=== PATIENT | male | born 1990 | race Caucasian/White ===

== ENCOUNTER 2022-08-13 07:33 | Emergency (ER) | payer MEDICAID, SELFPAY ==
[2022-08-13 08:03] VITALS: BP 139/85; PULSE 73; RESP 16; TEMP 36.3; O2SAT 96; BMI 34.8
[2022-08-13] MEDS: Albuterol Sulfate 2.5 MG, Albuterol Sulfate (0.083%) 2.5 MG 5 MG INHALE (08:25)
[2022-08-13 08:28] VITALS: PULSE 86; RESP 18; O2SAT 96
[2022-08-13] MEDS: predniSONE 20 MG TABLET 60 MG PO (09:00)
--- NOTE | 2022-08-13 09:05 | ED.ASTHMA ---
HPI - Asthma General Chief Complaint: Asthma Stated Complaint: asthma diff breathing Time Seen by Provider: 08/13/22 08:21 Source: patient Mode of arrival: ambulatory Limitations: no limitations History of Present Illness HPI Narrative: 31-year-old male presents to ED for coughing, chest tightness and wheezing since yesterday. Patient denies any fever or chills. Patient states slight body aches. Patient denies any leg swelling, calf pain, coughing up blood, recent long travle, recent surgery, pleursy, estrogen hormone use or history of blood clots. Related Data Previous Rx's Medication Instructions Recorded prednisone 20 mg tablet 40 mg PO DAILY 5 days #10 tabs 08/13/22 Allergies Allergy/AdvReac Type Severity Reaction Status Date / Time SEAFOOD Allergy Intermediate HIVES Uncoded 07/21/20 19:14 Review of Systems Review of Systems: Asthma exacerbation. Cough and wheezing Yes all other systems are reviewed and are negative PMFSH Social History Social History Advance Directives: No Advance Directives Information Provided: No Physical Exam Vital Signs: Vital Signs: Last Vital Signs Temp 97.3 F 08/13/22 08:03 Pulse 86 08/13/22 08:28 Resp 18 08/13/22 08:28 BP 139/85 08/13/22 08:03 Pulse Ox 96 08/13/22 08:03 O2 Del Method 08/13/22 08:03 BMI result Body Mass Index 34.8 Const: General: cooperative, healthy appearing, comfortable, no acute distress, well developed, alert, awake and Physically active Orientation/consciousness: oriented to person, oriented to place, oriented to time and patient oriented x3 HEENT: Head: Yes normal to inspection, Yes No palpable skull fracture present, Yes normocephalic, Yes atraumatic and No abrasion Eyes: General: appearance normal, both eyes and all related structures Neck: Neck: Yes normal visual inspection, Yes full ROM, Yes no lymphadenopathy, Yes no meningeal signs, Yes trachea midline, Yes supple, No anterior neck swelling and No tender Chest: Chest palpation & inspection: normal inspection of the chest and normal palpation of entire chest wall Resp: Effort & Inspection: normal respiratory effort and able to speak in complete sentences Auscultation: wheezes (slight) Cardio: Jugular venous distension: no JVD Heart sounds: S1 normal heart sound present and S2 normal heart sound present GI: Inspection: Yes normal to inspection and No abdominal wall ecchymosis Palpation (GI): Soft to palpation, not firm, nontender, no guarding and not rigid : General: No CVA tenderness and Yes no CVA tenderness Back/Spine/Pelvis: Back: no CVA tenderness, No CVA tenderness and No back tenderness Skin: General skin exam: no rashes or lesions noted and elasticity normal Neuro: General: oriented to person, oriented to place, oriented to time, patient oriented x3, gait normal, tone normal, no meningeal signs and CN's II-XI intact bilaterally Cranial nerves: Yes CN's II-XII intact bilaterally Extrem: Other: Lower extremities negative for swelling, pitting edema, calf tenderness General: Yes normal to inspection and Yes full ROM Psych: Appearance: grossly normal, well kempt and not disheveled Course Course Course Narrative: Albuterol inhaler COVID swab and steroids ordered. Reevaluation(s) Reevaluation #1: Patient feels better after albuterol treatments steroids. Patient to be discharged. Wheezing improved Time: 10:16 MDM - Asthma MDM Narrative Medical decision making narrative: asthma Lab Data Labs: Lab Results 08/13/22 Range/Units 09:00 COVID-19 ([facility]) Negative (Negative) COVID-19 Clin Com See Note Discharge Plan Discharge Clinical Impression: Asthma with acute exacerbation Patient Disposition: Home, Self-Care Instructions: Asthma (ED) Additional Instructions: Return to the ED immediately for any shortness of breath, chest pain, coughing up blood, leg swelling, calf pain, fever, chills, weakness, dizziness, or any other concerning symptoms. Please follow-up primary care provider. Continue to use your albuterol inhaler as needed. You will be discharged with steroids. Your COVID swab came back negative. Prescriptions: New prednisone 20 mg tablet 40 mg PO DAILY 5 Days Qty: 10 0RF Stand Alone Forms: Work/School Release Interventions: ED Discharge Assessment Last Done: 08/13/22 10:28 Discharge Date/Time: 08/13/22 10:30 Print Language: Kyrgyz
[2022-08-13 09:22] LABS: COVID-19 Test Negative (Negative)
== END 2022-08-13 10:30 | disposition home or self-care (01) ==
PROVIDERS: Physician Assistant; Emergency Provider Student in an Organized Health Care Education/Training Program
DX: J45.901 Unspecified asthma with (acute) exacerbation (principal); Z20.822 Contact with and (suspected) exposure to COVID-19
CPT/HCPCS: 87635; 94640; 99284

== ENCOUNTER 2022-08-30 15:05 | Emergency (ER) | payer MEDICAID, SELFPAY ==
--- NOTE | ~2022-08-30 | CT_ITS ---
EXAMINATION: CT head/brain wo IV con CLINICAL INFORMATION: Reason for Exam hand numbness COMPARISON: None. TECHNIQUE: Contiguous axial imaging was performed from the skull base to vertex without intravenous contrast. Sagittal and coronal reformatted images were obtained. This CT examination was performed using dose optimization techniques as appropriate, variously including the following: * Automated exposure control * Adjustment of mA and/or kV according to patient size (this includes techniques or standardized protocols for targeted exams where dose is matched to indication/reason for exam; i.e. extremities or head) Use of iterative reconstruction technique DLP: 843 mGy-cm FINDINGS: No acute osseous or soft tissue abnormality. Patchy paranasal sinus mucosal thickening. There is no evidence of acute intracranial hemorrhage or territorial infarction. No abnormal mass effect or midline shift is seen. Tracy to white matter differentiation is well preserved. No extra-axial fluid collections are identified. No hydrocephalus. CT/CT head/brain wo IV con IMPRESSION: 1. No acute intracranial abnormality.
[2022-08-30 15:11] VITALS: BP 118/71; PULSE 99; RESP 18; TEMP 36.1; O2SAT 98; BMI 39.0
[2022-08-30 15:30] LABS: MANUAL DIFF FLAG NO
[2022-08-30 15:37] LABS: Basophils Absolute Auto 0.1 X10*3/uL (0.0-0.2); Basophils Percent Auto 0.5 % (0-2); Eosinophils Absolute Auto 0.3 X10*3/uL (0.0-0.4); Eosinophils Percent Auto 3.2 % (0-4); Hematocrit 43.8 % (42.0-52.0); Hemoglobin 14.4 g/dl (14.0-18.0); Imm Gran Abs Auto 0.02 X10*3/uL (0.00-0.03); Imm Gran Pct Auto 0.2 % (0.0-0.4); Lymphocytes Absolute Auto 2.4 X10*3/uL (1.2-4.9); Lymphocytes Percent Auto 23.3 % (20-40); Mean Corpuscular HGB Conc 32.9 g/dl (31.0-36.0); Mean Corpuscular Hemoglobin 30.5 pg (27.0-33.0); Mean Corpuscular Volume 92.8 fL (80.0-98.0); Mean Platelet Volume 10.9 fL (9.4-12.4); Monocytes Absolute Auto 0.7 X10*3/uL (0.1-1.2); Monocytes Percent Auto 6.4 % (2-11); Neutrophils Absolute Auto 6.8 x10*3/uL (2.0-8.3); Neutrophils Percent Auto 66.4 % (45-73); Platelet Count 216 X10*3/uL (160-400); Red Blood Count 4.72 X10*6/uL (4.60-5.80); Red Cell Distribution Width 12.8 % (11.0-16.0); White Blood Count 10.3 X10*3/uL (4.8-10.8)
[2022-08-30 15:52] LABS: Alanine Aminotransferase 58 U/L (0-40); Albumin Level 4.2 g/dL (3.5-5.0); Alkaline Phosphatase 89 U/L (39-117); Anion Gap 14 (12-20); Aspartate Amino Transferase 43 U/L (5-37); Bilirubin Total 0.2 mg/dL (0.0-1.0); Blood Urea Nitrogen 8 mg/dL (9-16); Calcium 8.9 mg/dL (8.4-10.2); Carbon Dioxide 30 mmol/L (22-29); Chloride 102 mmol/L (96-108); Creatinine Clr Calc Pharmacy 163.2; Estimated Glomerular Filt Rate > 60; Glucose Random 99 mg/dL (60-115); Magnesium 1.7 mg/dL (1.6-2.6); Potassium 4.5 mmol/L (3.3-5.1); Sodium 141 mmol/L (135-145); Total Protein 7.2 g/dL (6.5-8.0)
--- NOTE | 2022-08-30 18:29 | ED_ITS ---
HPI - General Adult General Chief complaint: Extremity Problem Stated complaint: numb in both hands Time Seen by Provider: 08/30/22 18:12 Source: patient Mode of arrival: ambulatory Limitations: no limitations History of Present Illness HPI narrative: 31-year-old male presents to the ED for bilateral hand numbness and tingling the past 2 weeks. Patient denies any neck pain, arm pain, chest pain, shortness of breath, dizziness, slurred speech, facial droop, or paralysis of extremities. Patient states numbness and tingling from his wrist down in both hands. Patient denies any drug use. patient denies any forearm, biceps, or shoulder pain. Patient denies any swelling, redness, warmth, trauma, coldness, hardness. Related Data Previous Rx's Medication Instructions Recorded prednisone 20 mg tablet 40 mg PO DAILY 5 days #10 tabs 08/13/22 Allergies Allergy/AdvReac Type Severity Reaction Status Date / Time SEAFOOD Allergy Intermediate HIVES Uncoded 07/21/20 19:14 Review of Systems Review of Systems: Bilateral hand numbness Yes all other systems are reviewed and are negative [facility] Social History Social History Advance Directives: No Advance Directives Information Provided: Yes Physical Exam ED Vital Signs: Vital Signs - 24 hr 08/30/22 15:11 Temperature 96.9 F Pulse Rate 99 Respiratory Rate 18 Blood Pressure 118/71 Pulse Oximetry 98 Oxygen Delivery Method Room Air BMI result Body Mass Index 39.0 Const General: cooperative, healthy appearing, comfortable, no acute distress, well developed, alert, awake and Physically active Orientation/consciousness: oriented to time and patient oriented x3 HENMT Head: Yes normal to inspection, Yes No palpable skull fracture present, Yes normocephalic, Yes atraumatic and No abrasion Eyes General: appearance normal, both eyes and all related structures Neck Neck: Yes normal visual inspection, Yes full ROM, Yes no lymphadenopathy, Yes no meningeal signs, Yes trachea midline, Yes supple, No anterior neck swelling and No tender Chest Chest palpation & inspection: normal inspection of the chest and normal palpation of entire chest wall Resp Effort & Inspection: normal respiratory effort and able to speak in complete sentences Auscultation: clear to auscultation bilaterally Cardio Jugular venous distension: no JVD Heart sounds: S1 normal heart sound present and S2 normal heart sound present GI Inspection: Yes normal to inspection and No abdominal wall ecchymosis Palpation (GI): Soft to palpation, not firm, nontender, no guarding and not ri gid General: No CVA tenderness and Yes no CVA tenderness Back/Spine/Pelvis Back: no CVA tenderness, No CVA tenderness and No back tenderness Skin General skin exam: no rashes or lesions noted and elasticity normal Neuro Other: Negative facial droop. Negative slurred speech. Negative pronator drift. All extremities equal strength and 5+. [id number] rapid hand movement intact. Negative Romberg. General: oriented to time, patient oriented x3, gait normal, no meningeal signs and CN's II-XI intact bilaterally Cranial nerves: Yes CN's II-XII intact bilaterally Extrem Other: Bilateral upper extremities negative for any swelling, redness, deformity, bluish black discoloration, tenderness, ecchymosis, or crepitus. Bilateral upper extremities negative for any female/Tinel sign. Motor/nose/vascular exam of bilateral upper extremities intact. Patient can move all fingers. Capillary refills intact. General: Yes normal to inspection and Yes full ROM Psych Appearance: grossly normal, well kempt and not disheveled Course Course Course Narrative: Patient's CT scan and labs ordered including magnesium and CPK. Reevaluation(s) Reevaluation #1: Head CT scan normal. Labs normal including electrolytes. Magnesium normal. Electrolytes normal. CPK 291 slightly elevated. Patient informed to drink oral hydration. Patient not in rhabdo. Patient informed to follow-up with neurologist. Patient states bilateral hand numbness and tingling only. Patient denies any chest pain or shortness of breath. Not suspecting cardiac event. Time: 18:39 Medical Decision Making [facility] Narrative Medical decision making narrative: paresthesia Lab Data Result diagrams: 08/30/22 15:25 08/30/22 15:25 Labs: Lab Results 08/30/22 08/30/22 Range/Units 15:25 15:25 WBC 10.3 (4.8-10.8) X10*3/uL RBC 4.72 (4.60-5.80) X10*6/uL Hgb 14.4 (14.0-18.0) g/dl Hct 43.8 (42.0-52.0) % MCV 92.8 (80.0-98.0) fL MCH 30.5 (27.0-33.0) pg MCHC 32.9 (31.0-36.0) g/dl RDW 12.8 (11.0-16.0) % Plt Count 216 (160-400) X10*3/uL MPV 10.9 (9.4-12.4) fL Immature Gran % (Auto) 0.2 (0.0-0.4) % Neut % (Auto) 66.4 (45-73) % Lymph % (Auto) 23.3 (20-40) % [place] % (Auto) 6.4 (2-11) % Eos % (Auto) 3.2 (0-4) % Baso % (Auto) 0.5 (0-2) % Lymph # (Auto) 2.4 (1.2-4.9) X10*3/uL [place] # (Auto) 0.7 (0.1-1.2) X10*3/uL Eos # (Auto) 0.3 (0.0-0.4) X10*3/uL Baso # (Auto) 0.1 (0.0-0.2) X10*3/uL Abs Immat Gran (auto) 0.02 (0.00-0.03) X10*3/uL Absolute Neuts (auto) 6.8 (2.0-8.3) x10*3/uL Absolute Nucleated RBC 0.000 (0.0-0.012) X10*3/uL Nucleated RBC % (auto) 0.0 (0.0-0.2) /100WBC Sodium 141 (135-145) mmol/L Potassium 4.5 (3.3-5.1) mmol/L Chloride 102 (96-108) mmol/L Carbon Dioxide 30 H (22-29) mmol/L Anion Gap 14 (12-20) BUN 8 L (9-16) mg/dL Creatinine 0.89 (0.5-1.4) mg/dL Estim Creat Clear Calc 163.2 Estimated GFR > 60 Random Glucose 99 (60-115) mg/dL Calcium 8.9 (8.4-10.2) mg/dL Magnesium 1.7 (1.6-2.6) mg/dL Total Bilirubin 0.2 (0.0-1.0) mg/dL AST 43 H (5-37) U/L ALT 58 H (0-40) U/L Alkaline Phosphatase 89 (39-117) U/L Total Creatine Kinase 291 H (38-174) U/L Total Protein 7.2 (6.5-8.0) g/dL Albumin 4.2 (3.5-5.0) g/dL Discharge Plan Discharge Clinical Impression: Paresthesia and pain of both upper extremities Patient Disposition: Home, Self-Care Instructions: Paresthesia (ED) Additional Instructions: Head CT scan and labs came back normal. You need to follow-up with neurologist. Return to the ED for any chest pain, shortness of breath, neck pain, paralysis of extremities, bluish discoloration, redness, hotness, swelling, fever, chills, paralysis, facial droop, slurred speech, loss of vision, nausea, vomiting, or any other concerning symptoms. Prescriptions: No Action prednisone 20 mg tablet 40 mg PO DAILY 5 Days Qty: 10 0RF Referrals: [facility] Neuro/Sleep [Provider Group] (Paresthesia of both hands only) Stand Alone Forms: Work/School Release Interventions: ED Discharge Assessment Last Done: 08/30/22 19:13 Discharge Date/Time: 08/30/22 19:14 Print Language: Belarusian
== END 2022-08-30 19:14 | disposition home or self-care (01) ==
PROVIDERS: Physician Assistant; Emergency Provider Emergency Medicine
DX: R20.2 Paresthesia of skin (principal); R51.9 Headache, unspecified; Z79.899 Other long term (current) drug therapy
CPT/HCPCS: 36415; 70450; 80053; 82550; 83735; 85025; 99282; 99284